=== PATIENT | male | born 1935 | race Caucasian/White ===

== ENCOUNTER → 2016-07-09 | Outpatient (CLI) | payer MEDICARE, OTHER | END | disposition home or self-care (01) | LOC: CVU 10:50 | PROVIDERS: ATTEND Internal Medicine Cardiovascular Disease | DX: I65.22 Occlusion and stenosis of left carotid artery (principal); I25.10 Atherosclerotic heart disease of native coronary artery without angina pectoris; E11.9 Type 2 diabetes mellitus without complications | CPT/HCPCS: 93925 ==

== ENCOUNTER → 2016-12-10 | Outpatient (CLI) | payer MEDICARE, OTHER ==
[~2016-12-10] MED LIST: REGADENOSON 0.4 MG/5 ML SYRINGE ONE
== END | disposition home or self-care (01) ==
LOC: CFH 08:10
PROVIDERS: ATTEND Physician Assistant
DX: I47.1 Supraventricular tachycardia (principal)
CPT/HCPCS: 78452; 93017; A9502; J2785

== ENCOUNTER 2019-03-27 08:04 | Inpatient (IN) | payer MEDICARE, OTHER ==
[~2019-03-27] VITALS: Ht 172.7 cm; Wt 77.1 kg
[~2019-03-27 08:04] MED LIST changes: +ALBU90AE INH; +ALEN10TA7 PO; +ASPI81TA45 PO; +ATOR20TA PO; +CALC1TAB68 PO; +DEXT15DR18 EACHEYE; +HYDROCHLOROTH12.5 MG PO; +INSU100I11 SQ-INSULIN; +INSU100I13 SQ-INSULIN; +LANTANOPROST EACHEYE; +LOSA25TA25 PO; +METF500T17 PO; -REGADENOSON 0.4 MG/5 ML SYRINGE ONE; +TIMO5DRO28 EACHEYE; +[UNRECOGNIZED DRUG - REMARK]
[2019-03-27 08:24] VITALS: BP 164/71
[2019-03-27] MEDS ORDERED: LACTATED RINGERS 1,000 ML IV SCH (08:27)
[2019-03-27] MEDS ORDERED: FENTANYL PF 250 MCG/5ML ONE (08:29)
[2019-03-27] MEDS ORDERED: GABAPENTIN 300 MG CAPSULE PO ONE (09:30)
[2019-03-27] MEDS ORDERED: ACETAMINOPHEN 500 MG TABLET PO ONE (09:30)
[2019-03-27] MEDS ORDERED: NEOSPORIN OINT, 15GM ONE (09:48)
[2019-03-27] MEDS ORDERED: TRANEXAMIC ACID 100 MG/ML, 10ML ONE (10:42)
[2019-03-27] MEDS ORDERED: PROMETHAZINE 25 MG/ML, 1ML IV PRN (11:00)
[2019-03-27] MEDS ORDERED: hydrALAzine 20 MG/ML, 1ML IV PRN (11:00)
[2019-03-27] MEDS ORDERED: HYDROmorphone 2 MG/ML, 1ML IVPush PRN (11:00)
[2019-03-27] MEDS ORDERED: METOPROLOL 1 MG/ML, 5ML IV PRN (11:00)
[2019-03-27] MEDS ORDERED: ALBUTEROL/IPRATROPIUM 2.5MG/0.5MG, 3 ML NPPB PRN (11:00)
[2019-03-27] MEDS ORDERED: MEPERIDINE/PF 25MG/ML,1ML IVPush PRN (11:00)
[2019-03-27] MEDS ORDERED: OXYcodone 5 MG/5 ML ORAL.SOL UDC PO PRN (11:00)
[2019-03-27] MEDS ORDERED: FENTANYL PF 100 MCG/2ML IV PRN (11:00)
[2019-03-27 12:29] LABS: ANION GAP 6 mmol/L (5-15); CALCIUM 8.4 mg/dL (8.5-10.1); CHLORIDE 110 mmol/L (98-107); CREATININE 0.89 mg/dL (0.7-1.3)
[2019-03-27] MEDS ORDERED: FENTANYL PF 100 MCG/2ML ONE ×2 (12:34→13:21)
[2019-03-27 12:48] LABS: BASOPHILS # (AUTO) 0.02 x10^3/uL (0-0.1); BASOPHILS % (AUTO) 0 % (0-1); EOSINOPHILS # (AUTO) 0.19 x10^3/uL (0-0.4); EOSINOPHILS % (AUTO) 3 % (1-7); LYMPHOCYTES # (AUTO) 1.29 x10^3/uL (1-3.4); LYMPHOCYTES % (AUTO) 18 % (22-44); MD NO; MEAN CORPUSCULAR HEMOGLOBIN 29.1 pg (27.5-34.5); MEAN CORPUSCULAR HGB CONC 32.4 g/dL (33.2-36.2); MEAN CORPUSCULAR VOLUME 89.6 fL (81-97); MEAN PLATELET VOLUME 8.6 fL (7.4-10.4); MONOCYTES # (AUTO) 0.35 x10^3/uL (0.2-0.8); MONOCYTES % (AUTO) 5 % (2-9); NEUTROPHILS # (AUTO) 5.43 x10^3/uL (1.8-6.8); NEUTROPHILS % (AUTO) 75 % (42-75); PLATELET COUNT 212 x10^3/uL (130-400); RED BLOOD COUNT 4.36 x10^6/uL (4.38-5.82); RED CELL DISTRIBUTION WIDTH 15.3 % (9.4-14.8)
[2019-03-27] MEDS ORDERED: ONDANSETRON 2MG/ML, 2ML IVPush PRN (13:00)
[2019-03-27] MEDS ORDERED: BISACODYL 10 MG SUPP PR PRN (13:00)
[2019-03-27] MEDS ORDERED: ACETAMINOPHEN 325 MG TABLET PO PRN (13:00)
[2019-03-27] MEDS ORDERED: morphine SULFATE 10 MG/ML, 1ML IVPush PRN (13:00)
[2019-03-27] MEDS ORDERED: PROMETHAZINE 25 MG/ML, 1ML IM PRN (13:00)
[2019-03-27] MEDS ORDERED: MAGNESIUM HYDROXIDE 8%, 30ML UDC PO PRN (13:00)
[2019-03-27] MEDS ORDERED: SENNA/DOCUSATE TABLET PO PRN (13:00)
[2019-03-27] MEDS ORDERED: ALUMINUM/MAG/SIMETHICONE 30 ML UDC PO PRN (13:00)
[2019-03-27] MEDS ORDERED: OXYcodone 5 MG/5 ML ORAL.SOL UDC ONE (13:21)
[2019-03-27 14:12] VITALS: BP 146/78
[2019-03-27 15:44] LABS: BASOPHILS % (AUTO) 0 % (0-1); EOSINOPHILS # (AUTO) 0.14 x10^3/uL (0-0.4); EOSINOPHILS % (AUTO) 1 % (1-7); LYMPHOCYTES # (AUTO) 0.68 x10^3/uL (1-3.4); LYMPHOCYTES % (AUTO) 6 % (22-44); MD NO; MEAN CORPUSCULAR HEMOGLOBIN 28.8 pg (27.5-34.5); MEAN CORPUSCULAR HGB CONC 32.5 g/dL (33.2-36.2); MEAN CORPUSCULAR VOLUME 88.9 fL (81-97); MEAN PLATELET VOLUME 7.7 fL (7.4-10.4); MONOCYTES # (AUTO) 0.11 x10^3/uL (0.2-0.8); MONOCYTES % (AUTO) 1 % (2-9); NEUTROPHILS # (AUTO) 10.28 x10^3/uL (1.8-6.8); NEUTROPHILS % (AUTO) 92 % (42-75); PLATELET COUNT 220 x10^3/uL (130-400); RED BLOOD COUNT 3.96 x10^6/uL (4.38-5.82); RED CELL DISTRIBUTION WIDTH 15.9 % (9.4-14.8)
[2019-03-27] MEDS: INSULIN LISPRO 100 UNITS/ML, PEN SQ-INSULIN SCH ×2 (16:00→21:00)
[2019-03-27] MEDS ORDERED: CEFAZOLIN 1,000 MG ONE (16:34)
[2019-03-27] MEDS ORDERED: EPHEDRINE 50 MG/ML, 1ML ONE (16:34)
[2019-03-27] MEDS ORDERED: ONDANSETRON 2MG/ML, 2ML ONE (16:34)
[2019-03-27] MEDS ORDERED: PHENYLEPHRINE 10 MG/ML ONE (16:34)
[2019-03-27] MEDS ORDERED: GLYCOPYRROLATE 0.2MG/1ML, 5ML ONE (16:34)
[2019-03-27] MEDS ORDERED: ROCURONIUM 10MG/ML,5ML ONE (16:34)
[2019-03-27] MEDS ORDERED: NEOSTIGMINE 1 MG/ML, 10ML ONE (16:34)
[2019-03-27] MEDS ORDERED: DEXAMETHASONE 4 MG/ML, 1ML ONE (16:34)
[2019-03-27] MEDS ORDERED: PROPOFOL 10 MG/ML, 20ML ONE (16:34)
[2019-03-27] MEDS: CEFAZOLIN PMX 1GM/50ML 50 ML IVPB SCH (18:13)
[2019-03-27 19:09] VITALS: BP 113/68
[2019-03-27] MEDS: LATANOPROST OPHTH 0.005%, 2.5ML EACHEYE SCH (21:00)
[2019-03-27] MEDS: DOCUSATE 100 MG CAPSULE PO SCH (21:04)
[2019-03-27] MEDS: OXYcodone/APAP 5/325MG TABLET PO PRN (21:04)
[2019-03-27 23:39] VITALS: BP 125/66
[2019-03-28] MEDS: OXYcodone/APAP 5/325MG TABLET PO PRN (00:59)
[2019-03-28] MEDS: CEFAZOLIN PMX 1GM/50ML 50 ML IVPB SCH (02:30)
[2019-03-28 04:25] VITALS: BP 123/63
[2019-03-28] MEDS: ENOXAPARIN 40 MG/0.4 ML SQ SCH (06:08)
[2019-03-28] MEDS: INSULIN LISPRO 100 UNITS/ML, PEN SQ-INSULIN SCH ×4 (07:00→20:27)
[2019-03-28 07:19] VITALS: BP 87/47
[2019-03-28 07:29] VITALS: BP 87/52
[2019-03-28 07:53] VITALS: BP 106/57
[2019-03-28] MEDS: MULTIVITAMINS/MINERALS TABLET PO SCH (08:28)
[2019-03-28] MEDS: TIMOLOL OPHTH 0.5%, 5ML EACHEYE SCH (08:29)
[2019-03-28] MEDS: DOCUSATE 100 MG CAPSULE PO SCH ×2 (08:29→20:27)
[2019-03-28] MEDS: HYDROcodone/APAP 5/325 TABLET PO PRN ×3 (08:39→20:27)
[2019-03-28 13:18] VITALS: BP 104/55
[2019-03-28] MEDS: LATANOPROST OPHTH 0.005%, 2.5ML EACHEYE SCH (20:28)
[2019-03-28 20:38] VITALS: BP 118/58
[2019-03-29 00:55] VITALS: BP 119/65
[2019-03-29] MEDS: HYDROcodone/APAP 5/325 TABLET PO PRN ×2 (02:16→08:13)
[2019-03-29] MEDS: ENOXAPARIN 40 MG/0.4 ML SQ SCH (06:03)
[2019-03-29] MEDS: INSULIN LISPRO 100 UNITS/ML, PEN SQ-INSULIN SCH (07:00)
[2019-03-29] MEDS: MULTIVITAMINS/MINERALS TABLET PO SCH (07:57)
[2019-03-29] MEDS: TIMOLOL OPHTH 0.5%, 5ML EACHEYE SCH (07:58)
[2019-03-29] MEDS: DOCUSATE 100 MG CAPSULE PO SCH (07:58)
[2019-03-29 08:11] VITALS: BP 117/66
[2019-03-29] MEDS ORDERED: OXYC5CAP2 PO (10:02)
[2019-03-29] MEDS ORDERED: ENOX40SY4 SQ (10:03)
[2019-03-29] MEDS ORDERED: ACET325T26 PO (10:42)
[2019-03-29] MEDS ORDERED: DOCU-131 PO (10:44)
== END 2019-03-29 11:45 | disposition home health service (06) | DRG 481 ==
LOC: OUT 08:04 → ORIP 12:42 → 4NE 14:06 → DCLOUNGE 03-29 11:00
PROVIDERS: ADMIT Orthopaedic Surgery; ATTEND Orthopaedic Surgery
PROC: 0SPB04Z Removal of Internal Fixation Device from Left Hip Joint, Open Approach (ICD-10-PCS; 2019-03-27)
PROC: 0QU707Z Supplement Left Upper Femur with Autologous Tissue Substitute, Open Approach (ICD-10-PCS; 2019-03-27)
PROC: 0QS704Z Reposition Left Upper Femur with Internal Fixation Device, Open Approach (ICD-10-PCS; principal; 2019-03-27 10:00)
DX: T84.195A Other mechanical complication of internal fixation device of left femur, initial encounter (principal); S72.22XK Displaced subtrochanteric fracture of left femur, subsequent encounter for closed fracture with nonunion; E11.9 Type 2 diabetes mellitus without complications; M19.90 Unspecified osteoarthritis, unspecified site; I25.10 Atherosclerotic heart disease of native coronary artery without angina pectoris; K21.9 Gastro-esophageal reflux disease without esophagitis; G47.00 Insomnia, unspecified; B95.4 Other streptococcus as the cause of diseases classified elsewhere; Z85.46 Personal history of malignant neoplasm of prostate; Z82.61 Family history of arthritis; Z87.891 Personal history of nicotine dependence; Z88.8 Allergy status to other drugs, medicaments and biological substances; Z79.84 Long term (current) use of oral hypoglycemic drugs
CPT/HCPCS: 36415; 76000; 80048; 82962; 85025; 87070; 87075; 87077; 87176; 87205; 93005; C1713; G0378; J0690; J1100; J1650; J2405; J2704; J2710; J3010; J1815; J2370; J7120